=== PATIENT | male | born 1970 | race Caucasian/White ===

== ENCOUNTER 2023-03-06 08:38 | Outpatient (REF) | payer OTHER, SELFPAY ==
--- NOTE | ~2023-03-06 | MR_ITS ---
EXAMINATION: MR CERVICAL SPINE WITHOUT CONTRAST CLINICAL INFORMATION: Herniation of disc with radiculopathy. COMPARISON: Cervical spine MRI 09/23/2021. TECHNIQUE: MRI of the cervical spine was performed using routine sequences without contrast. FINDINGS: The cervical vertebral bodies maintain normal heights and alignment. There is mild disc height loss at C5-C6 and C6-C7. No bone marrow edema is seen. The cervical cord signal appears normal. The imaged intracranial contents and extraspinal soft tissues are unremarkable. SPINAL LEVELS: C2-C3: No posterior disc abnormality. No spinal canal or neural foraminal stenosis. C3-C4: Mild disc bulging with uncovertebral hypertrophy resulting in moderate left and mild right neural foraminal stenosis. No spinal canal stenosis. C4-C5: Disc osteophyte complex asymmetric to the left with left more than right uncovertebral hypertrophy and mild left facet arthropathy resulting in severe left neural foraminal stenosis and mild to moderate spinal canal stenosis with mild flattening of the left ventral cord. No interval change. C5-C6: Disc osteophyte complex with left more than right uncovertebral hypertrophy resulting in moderate to severe spinal canal stenosis with ventral cord deformity and severe left and moderate right neural foraminal stenosis. Spinal canal stenosis appears progressed. C6-C7: Disc osteophyte complex and left more than right uncovertebral hypertrophy resulting in mild spinal canal stenosis and moderate to severe left and [id number] right neural foraminal stenosis. C7-T1: Mild disc bulging with uncovertebral hypertrophy. No significant spinal canal or neural foraminal stenosis. MR/MR cervical spine wo con IMPRESSION: Multilevel degenerative spondylotic changes. At C5-C6 there is moderate to severe spinal canal stenosis with ventral cord deformity and severe left and moderate right neural foraminal stenosis. At C4-C5 there is mild to moderate spinal canal stenosis and severe left neural foraminal stenosis. At C6-C7 there is mild spinal canal stenosis and moderate to severe left and [id number] right neural foraminal stenosis.
== END 2023-03-06 08:39 | disposition home or self-care (01) ==
LOC: HO.MRI 08:38
PROVIDERS: PCP Internal Medicine; Visit Provider Neurological Surgery
DX: M50.10 Cervical disc disorder with radiculopathy, unspecified cervical region (principal)
CPT/HCPCS: 72141

== ENCOUNTER 2023-03-22 05:50 | Day surgery (SDC) | payer OTHER, SELFPAY ==
--- NOTE | 2023-03-14 | ECG_ITS ---
Test Reason : preop Blood Pressure : / mmHG Vent. Rate : 064 BPM Atrial Rate : 064 BPM P-R Int : 152 ms QRS Dur : 088 ms QT Int : 390 ms P-R-T Axes : 033 011 050 degrees QTc Int : 402 ms Normal sinus rhythm Nonspecific T wave abnormality Borderline ECG No previous ECGs available Referred By: Danielle Ferrell Electronically Signed By:ARCHANA ELIAS
[2023-03-14 14:00] VITALS: BP 132/89; PULSE 77; RESP 16; O2SAT 97; BMI 31.7
--- NOTE | 2023-03-14 14:24 | P.CONAN_ITS ---
Documented by User: Danielle Ferrell NP 03/21/23 11:45 HPI - Anesthesia Eval Consult details Narrative: 53yo M for Ant Cerv Discectomy w/ fusion C6-7 L hearing aid PMFSH Active Problems Active Problems: All Active Problems (Updated 03/14/23 @ 13:59 by Ellen Wyatt, WINDY) Cervical radiculopathy (Acute) Past Medical History Medical History Elevated cholesterol Erectile dysfunction IFG (impaired fasting glucose) Meniere's disease Neck pain Neck pain on left side Family History Family history of problems with anesthesia: No Surgical History Surgical History H/O thumb surgery History of Problems with Anesthesia: No Social History Social History Are you a primary spiritual care coordinator to a significant other at home: No Do you presently have visiting nurse or other home services: No Patient Tobacco Use Status: Never used Tobacco Use of substances other than those prescribed or required for medical reasons: No Have you been hit, kicked, punched, or otherwise hurt by someone within the past year? 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 Meds Allergies Allergy/AdvReac Type Severity Reaction Status Date / Time morphine Allergy Severe Vomiting Verified 03/22/23 06:16 Home Medications Medication Instructions Recorded Confirmed Last Taken Type atorvastatin 20 mg tablet 20 mg PO BEDTIME 03/13/23 03/22/23 Unknown History Exam Exam Date and Time: March 14, 2023 1424 Height,Weight and Vital Signs: Height 5 ft 8 in Weight 94.6 kg Last Vital Signs Pulse 77 03/14/23 14:00 Resp 16 03/14/23 14:00 BP 132/89 03/14/23 14:00 Pulse Ox 97 03/14/23 14:00 O2 Del Method Room Air 03/14/23 14:00 Pertinent Lab Results Pertinent Lab Results: Lab Results 03/14/23 03/14/23 Range/Units 14:40 14:40 WBC 5.6 (4.8-10.8) X10*3/uL RBC 5.23 (4.60-5.80) X10*6/uL Hgb 15.7 (14.0-18.0) g/dl Hct 45.3 (42.0-52.0) % MCV 86.6 (80.0-98.0) fL MCH 30.0 (27.0-33.0) pg MCHC 34.7 (31.0-36.0) g/dl RDW 11.7 (11.0-16.0) % Plt Count 242 (160-400) X10*3/uL MPV 9.5 (9.4-12.4) fL Absolute Nucleated RBC 0.000 (0.0-0.012) X10*3/uL Nucleated RBC % (auto) 0.0 (0.0-0.2) /100WBC Sodium 141 (135-145) mmol/L Potassium 4.5 (3.3-5.1) mmol/L Chloride 106 (96-108) mmol/L Carbon Dioxide 29 (22-29) mmol/L Anion Gap 11 L (12-20) BUN 18 H (9-16) mg/dL Creatinine 0.88 (0.5-1.4) mg/dL Estim Creat Clear Calc 110.8 Estimated GFR > 60 Random Glucose 94 (60-115) mg/dL Calcium 9.4 (8.4-10.2) mg/dL Narrative Narrative: EKG 03/2023 Vent. Rate : 064 BPM ? ? Atrial Rate : 064 BPM ?? P-R Int : 152 ms? QRS Dur : 088 ms ? ? QT Int : 390 ms ? ? ? P-R-T Axes : 033 011 050 degrees ?? QTc Int : 402 ms ? Normal sinus rhythm Nonspecific T wave abnormality Borderline ECG No previous ECGs available Airway Neck ROM: Full Loose/Missing/Broken Teeth: Yes (Molars pulled) Heart: RRR Lungs: CTAB Assessment and Plan Assessment Anesthesia Assessment: Anesthesia Plan Discussed and PAT Visit Final Anesthetic Review Family History of Problems with Anesthesia: No History of Problems with Anesthesia: No Documented by User: Natalie Menon MD 03/22/23 07:55 PMFSH Active Problems Active Problems: All Active Problems (Updated 03/22/23 @ 07:10 by Natalie Menon MD) Cervical radiculopathy (Acute) Neck and shoulder pain. Left UE numbness. No weakness Past Medical History Medical History Elevated cholesterol Erectile dysfunction IFG (impaired fasting glucose) Meniere's disease Neck pain Neck pain on left side Surgical History Surgical History H/O thumb surgery Social History Social History Are you a primary spiritual care coordinator to a significant other at home: No Do you presently have visiting nurse or other home services: No Patient Tobacco Use Status: Never used Tobacco Use of substances other than those prescribed or required for medical reasons: No Have you been hit, kicked, punched, or otherwise hurt by someone within the past year? If so, by whom?: No Are you DNR?: No Advance Directives: No (will bring dos) Advance Directives Information Provided: No Advance Directives on File: No Recently lost weight without trying: No Nutrition Risks: No Nutritional Risk Meds Allergies Allergy/AdvReac Type Severity Reaction Status Date / Time morphine Allergy Severe Vomiting Verified 03/22/23 06:16 Home Medications Medication Instructions Recorded Confirmed Last Taken Type atorvastatin 20 mg tablet 20 mg PO BEDTIME 03/13/23 03/22/23 Unknown History Exam Height,Weight and Vital Signs: Height 5 ft 8 in Weight 94.6 kg Last Vital Signs Pulse 77 03/14/23 14:00 Resp 16 03/14/23 14:00 BP 132/89 03/14/23 14:00 Pulse Ox 97 03/14/23 14:00 O2 Del Method Room Air 03/14/23 14:00 Vital Signs Temp Pulse Resp BP Pulse Ox O2 Del Method 03/22/23 06:21 97.0 F 62 16 129/88 97 Room Air Airway Mallampati Class: II TM Dist: >3cm Loose/Missing/Broken Teeth: Yes (Molars pulled. Denies broken or loose teeth) Assessment and Plan Assessment Anesthesia Assessment: Chart Reviewed Final Anesthetic Review NPO: Yes ASA Class: II Final Preanesthetic Review: No Changes in Pt Med Stat, Meds/Allgs Chart Reviewed, Consent Obtained/Reviewed and Anes Risks/Benef Reviewed Patient Risk: Low Procedure Risk: Low Assessment/Block/Sedation in SS: Assess/Block/Sedation-SS Anesthetic Plan Anesthetic Plan: GA Disposition: Standard PACU
[2023-03-14 14:58] LABS: Hematocrit 45.3 % (42.0-52.0); Hemoglobin 15.7 g/dl (14.0-18.0); Mean Corpuscular HGB Conc 34.7 g/dl (31.0-36.0); Mean Corpuscular Volume 86.6 fL (80.0-98.0); Mean Platelet Volume 9.5 fL (9.4-12.4); Platelet Count 242 X10*3/uL (160-400); Red Blood Count 5.23 X10*6/uL (4.60-5.80); Red Cell Distribution Width 11.7 % (11.0-16.0); White Blood Count 5.6 X10*3/uL (4.8-10.8)
[2023-03-14 16:13] LABS: Anion Gap 11 (12-20); Blood Urea Nitrogen 18 mg/dL (9-16); Calcium 9.4 mg/dL (8.4-10.2); Carbon Dioxide 29 mmol/L (22-29); Chloride 106 mmol/L (96-108); Creatinine Clr Calc Pharmacy 110.8; Estimated Glomerular Filt Rate > 60; Glucose Random 94 mg/dL (60-115); Potassium 4.5 mmol/L (3.3-5.1); Sodium 141 mmol/L (135-145)
[2023-03-22] VITALS (9 sets, daily range): BP systolic 129–155; BP diastolic 83–95; PULSE 62–87; RESP 11–17; TEMP 36.1–36.3; O2SAT 97–100
--- NOTE | ~2023-03-22 | FL_ITS ---
EXAMINATION: XR FLUOROSCOPY IN OR WITH IMAGES CLINICAL INFORMATION: Anterior cervical discectomy with fusion C6-C7 COMPARISON: None available. TECHNIQUE: Fluoroscopy Supervised By: Dr. Herrera. Fluoroscopy Time 0.1 seconds. Cumulative Dose: 6.08 mGy. DAP: 1.36 Gycm2. Images: 2 FINDINGS: There are 2 digital images obtained in the OR revealing low-profile disc prosthesis at the C5-C6 disc level. FL/FL guidance in OR IMPRESSION: Fluoroscopy guidance was provided to referring physician during spine surgery.
[2023-03-22] MEDS: methocarbamoL 750 MG TABLET PO (06:36)
[2023-03-22] MEDS: Lactated Ringers 1,000 ML 100 ML IVCONT (06:36)
[2023-03-22] MEDS: Gabapentin 300 MG CAPSULE PO (06:37)
--- NOTE | 2023-03-22 07:33 | PC.NURSE ---
Verified preop dose of gabapentin with Waqar LIND and Dr. Herrera. 300mg po to be given in preop.
--- NOTE | 2023-03-22 08:56 | P.OP_ITS ---
Operative Note Operative Note Date of Service: 03/22/23 Narrative: Preoperative Diagnosis: cervical radiculopathy, left side Procedure: C6-C7 Anterior discectomy, arthrodesis and implantation cage ; C6- C7 anterior instrumentation ; local autograft; microscope Informed Consent was obtained for this operation. I have explained the nature, purpose and benefits of the operation. I have discussed the risks and benefit of the operation including possible complications or adverse events with patient/family. Alternative(s) were discussed with the patient with their relative benefits and risks as well as the consequences of not accepting the operation were included in obtaining consent. Surgeon: HOMERO SHARMA MD, PHD Procedure Assisted By: Renard Lombardi Description of Procedure: this patient has been suffering from left-sided cervical radiculopathy due to a disc osteophyte complex compressing the left C7 nerve root. He was offered anterior diskectomy and fusion C6-C7The procedure complications were explained. The patient was consented. The patient was brought to the operating room and endotracheally intubated. The patient was put in supine position with slight extension of the neck. Prep and drape was done followed by timeout. A mid cervical incision was made followed by opening of the platysma. The prevertebral fascia was reached following the natural planes while the physician certified physician assistant provided manual retraction. The prevertebral fascia was opened to expose the disc space. A spinal needle was placed in the disk space to confirm the correct level with xray. The longus colli muscles were released bilaterally and a self retaining retractor was inserted. Two Loop pins were placed in the C6-C7 vertebral bodies and distraction was give over the interspace. The discectomy was completed toward the posterior annulus of the disc. The microscope was brought in. The remainder of the discectomy was completed. The posterior ligament was opened and resected to expose the underlying dura. Osteophytes were resected from the body of C6-C7 and saved for autograft. Bilateral foraminotomies were done. On the left side a disc herniation and bone spurs were causing severe foraminal stenosis. The endplates were prepared after which a 6 mm cage filled with autograft was inserted into the disc space. A separate attached plate was locked down with 2 x 14 mm screws as anterior instrumentation. Final x-rays in AP and lateral projection showed a satisfactory position of the implant. The physician certified physician assistant took over. The Loop pin was removed. Hemostasis was done. He closed the incision in 2 layers with a 3-0 Vicryl. Steri-Strips used to approximate incision. An OpSite with Tegaderm was used to cover the incision. All sponge and needle counts were correct. Patient was extubated and transported in stable is to recovery room. Anesthesia: General Estimated Blood Loss (ml): Ten Duration of Surgery: 45 minutes Complications: None Postoperative Plan: Discharge home Complications: None
--- NOTE | 2023-03-22 09:20 | PM.DS ---
DS: Providers Provider Date of Service: 03/22/23 Date of discharge: 03/22/23 Primary care physician: Lennie Wood MD DS: Diagnosis Discharge Diagnosis (1) Cervical radiculopathy: Status: Acute DS: Summary Time Spent with Patient Time attestation: Total time managing care of this patient today ____ minutes. Discharge coordination time: Less than 30 minutes Quality: Safe Use of Opioids Does Pt have an Active Cancer Diagnosis on the Problem List?: No Quality: Stroke Does the patient have a stroke diagnosis?: No Physical Exam Vital Signs: Vital Signs: Last Vital Signs Temp 97.0 F 03/22/23 06:21 Pulse 62 03/22/23 06:21 Resp 16 03/22/23 06:21 BP 129/88 03/22/23 06:21 Pulse Ox 97 03/22/23 06:21 O2 Del Method Room Air 03/22/23 06:21 BMI result Body Mass Index 31.7 Discharge Plan Discharge Patient Disposition: Home, Self-Care Referrals: Lennie Wood MD [Primary Care Provider] - 1 Week Discharge Medications: New docusate sodium [Colace] 100 mg capsule 100 mg PO BID Qty: 20 0RF oxycodone 5 mg tablet 5 mg PO Q4H PRN (Reason: pain) Qty: 30 0RF Rx Instructions: Partial Fill upon patient request. Continued atorvastatin 20 mg Tablet 20 mg PO BEDTIME Discharge Orders: Discharge Order (Routine); Ordered 03/22/23 Ordered By: Renard Carrion Diet: Advance to usual diet Activity on Discharge: As tolerated Activity Restrictions/Additional Instructions: After your spinal surgery we ask you to observe the following restrictions/guidelines: Activity: It is normal to feel some discomfort as you increase your activity, but that will improve with time. We ask you avoid heavy lifting or acitivities that cause pain. As a general rule, 8lbs is a safe limit for lifting right after surgery. Walk as much as you feel comfortable but not to exhaustion. You will feel extra tired the first few days after surgery. Stay well hydrated. It is OK to walk up and down stairs You may return to driving when you are off narcotics (such as vicodin, oxycodone, dilaudid, etc), and you are back to normal functional capacity. If you have any concerns please check with office before driving. Return to work is specific to each patient and each surgery, so please speak with your doctor/PA at first follow up. Please bring paperwork such as FMLA at that time if you need it filled out. Medications: We will give you a short supply of narcotics after surgery (usually one weeks worth). If you need more please call the office but do not use more than prescribed. You will need to give our office 48 hours notice if you need narcotics refilled and we do not fill narcotics on weekends or evenings. If you are on a narcotic, it is a good idea to take a stool softener such as colace or senna to avoid constipation If you take blood thinner such as aspirin, Plavix, Coumadin, Effient, Eliquis etc for conditions such as Afib, DVT, Pulmonary embolus, coronary disease, stents etc please speak with your surgeon about specific details as to when you can resume these medications. You can resume NSAIDs on post op day 1 (eg: Motrin, Naproxen, etc). Follow up: Please call the office, , after surgery to arrange a 3 week follow up for wound check. Wound Care: You may remove your dressing on the first day after surgery. You may leave open to air. Please do not remove the steri strips underneath. they will fall off on their own in one week. IT IS NORMAL FOR THE WOUND TO OOZE OR BE BLOODY FOR A FEW DAYS AFTER SURGERY. IF THIS HAPPENS JUST PLACE NEW DRESSING OVER IT TO AVOID STAINING CLOTHES. You may shower on post op day # 1 We ask that you do not let the water soak the wound. If it does get wet, just towel dry lightly. Please do not scrub your incision or place any type of chemical/ointment on the wound. No tub baths, pools or jacuzzis for one month. If you have any leaking or redness from your wound, or fevers, please call office
[2023-03-22] MEDS: oxyCODONE HCl Immed Release 5 MG TABLET PO (09:59)
== END 2023-03-22 11:02 | disposition home or self-care (01) ==
PROVIDERS: Nurse Practitioner; PCP Internal Medicine; Visit Provider Neurological Surgery
PROC: (CPT 22551; principal; 2023-03-22 07:30)
DX: M50.123 Cervical disc disorder at C6-C7 level with radiculopathy (principal); R20.0 Anesthesia of skin; M25.78 Osteophyte, vertebrae; E78.00 Pure hypercholesterolemia, unspecified; H81.09 Meniere's disease, unspecified ear; Z79.899 Other long term (current) drug therapy; Z88.8 Allergy status to other drugs, medicaments and biological substances
CPT/HCPCS: 22551; 22853; 22845; 20936; 36415; 80048; 85027; 93005; C1713; J0131; J0690; J1100; J1170; J1885; J2250; J2405; J3010

== ENCOUNTER → 2023-04-13 09:07 | Outpatient (BNVA) | payer OTHER, SELFPAY | PROVIDERS: PCP Internal Medicine; Visit Provider Physician Assistant ==

== ENCOUNTER 2023-05-29 14:18 | Outpatient (REF) | payer OTHER, SELFPAY ==
--- NOTE | ~2023-05-29 | XR_ITS ---
EXAMINATION: XR CERVICAL SPINE CLINICAL INFORMATION: Radiculopathy cervical region. Anterior cervical discectomy with fusion C6-C7. COMPARISON: MR cervical spine 03/06/2023, OR fluoroscopy images 03/07/2023. TECHNIQUE: 4 views of the cervical spine inclusive of flexion and extension views. FINDINGS: Postsurgical changes status post anterior cervical discectomy at C6-C7 with hardware in place. Hardware appears intact. Limited visualization of C6 and C7 due to overlying soft tissues. Minimal anterolisthesis of C2 on C3 with flexion reduces with extension. Moderate degenerative changes at C5-C6 with loss of disc space height and hypertrophic change. XR/XR cervical spine 4V IMPRESSION: Postsurgical changes status post anterior cervical discectomy at C6-C7 with hardware in place. Hardware appears intact. Limited visualization of C6 and C7 due to overlying soft tissues. Minimal anterolisthesis of C2 on C3 with flexion reduces with extension. Moderate degenerative changes at C5-C6.
== END 2023-05-29 14:19 | disposition home or self-care (01) ==
LOC: HO.HOSX 14:18
PROVIDERS: Visit Provider Physician Assistant
DX: M54.12 Radiculopathy, cervical region (principal)
CPT/HCPCS: 72050

== ENCOUNTER 2023-05-29 14:34 | Outpatient (AMB) | payer OTHER, SELFPAY ==
--- NOTE | 2023-05-29 15:28 | A.SPINEOV_ITS ---
Intake Intake Visit Reasons: 6 week follow up with Xrays Intake Note: Mr. Sanchez is here today for his 2nd post-op w/x-rays. 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 His arm pain is gone. He occasionally gets a little tingling in his 4th and 5th digits but otherwise doing great. He has some neck stiffness but otherwise is happy with the results of the surgery. We discussed activity guidelines, restrictions and expectations after anterior cervical fusion. His x-rays show the hardware in acceptable position. He will see us back on an as-needed basis. Renard Herrera MD, PhD [facility] Orders: Orders XR cervical spine 4V Today M54.12 - Radiculopathy, cervical region Coding Level of Care Code Global (92990) Diagnoses Cervical radiculopathy M54.12
== END 2023-05-29 15:35 | disposition home or self-care (01) ==
PROVIDERS: PCP Internal Medicine; Visit Provider Physician Assistant
DX: M54.12 Radiculopathy, cervical region (principal)
CPT/HCPCS: 99024